=== PATIENT | female | born 1985 | race Caucasian/White ===

== ENCOUNTER 2023-01-21 14:18 | Emergency (ER) | payer BC ==
[~2023-01-21] VITALS: Ht 162.6 cm; Wt 81.4 kg
[2023-01-21 14:25] VITALS: BP 126/74; PULSE 100; RESP 18; O2SAT 97
[2023-01-21 15:45] VITALS: TEMP 98.3
[2023-01-21] MEDS ORDERED: ACETAMINOPHEN 325MG TABLET PO ONE (15:45)
[2023-01-21] MEDS ORDERED: IBUP-2029 MT (16:35)
[2023-01-21] MEDS ORDERED: METO-293 MT (16:35)
== END 2023-01-21 17:18 | disposition home or self-care (01) ==
LOC: ER 14:51
DX: S02.2XXA Fracture of nasal bones, initial encounter for closed fracture (principal); S06.9X0A Unspecified intracranial injury without loss of consciousness, initial encounter; I10 Essential (primary) hypertension; J45.909 Unspecified asthma, uncomplicated; Z88.1 Allergy status to other antibiotic agents; Z98.890 Other specified postprocedural states; W21.01XA Struck by football, initial encounter; Y93.89 Activity, other specified; Y92.89 Other specified places as the place of occurrence of the external cause; Y99.8 Other external cause status
CPT/HCPCS: 70160; 99283